=== PATIENT | female | born 2000 | race Caucasian/White ===

== ENCOUNTER 2021-03-23 13:33 | Emergency (ER) | payer OTHER ==
[~2021-03-23] VITALS: Ht 162.5 cm; Wt 110.4 kg
--- NOTE | 2021-03-23 14:01 | ED Abdominal Pain ---
General Chief Complaint: Abdominal/GI Problems Stated Complaint: PAIN IN ABD/BACK WHILE EATING Nursing Triage Note: PT ARRIVES TO ER WITH C/O ABD PAIN THAT RADIATES TO UPPER BACK WHEN EATING. PT STATES SHE HAS ACID REFLUX AND TOOK A TUMS TODAY WITOUT RELIEF. PT ALSO HAD FIRST DOSE OF MODERNA VACCINE LAST WEDNESDAY Source of Information: Patient History of Present Illness Date Seen by Provider: Mar 23, 2021 Time Seen by Provider: 13:52 Initial Comments PT ARRIVES VIA POV FROM HOME C/O EPIGASTRIC PAIN THAT RADIATES THRU TO HER BACK SINCE YESTERDAY PAIN IS ONLY WHEN SHE EATS OR DRINKS ANYTHING, AND IS NOT PRESENT NOW. ATE BREAKFAST BURRITOS 1 HOUR AGO STATES "IT FELT LIKE HEARTBURN" SO SHE TOOK A TUMS JUST PRIOR TO ARRIVAL AND IT DID NOT HELP, SO CAME TO ER NO NAUSEA/VOMITING/DIARRHEA/CONSTIPATION. HAD NORMAL BM AROUND 2230 LAST PM NO FEVER NO COUGH/URI SYMPTOMS OR RECENT ILLNESS NO URINARY SYMPTOMS NO HISTORY OF SIMILAR NO PRIOR ABDOMINAL SURGERIES OR GI PROBLEMS RARE ALCOHOL USE, AND NONE X 1 MONTH NO SMOKING NO DRUG USE DOES NOT TAKE ANY MEDICATIONS ON DAILY BASIS OR HAVE ANY CHRONIC MEDICAL PROBLEMS LMP 03/16/21. NORMAL. NO CONTROL. FIRST MODERNA COVID-19 VACCINE ON 03/20/21 PCP: JB Allergies and Home Medications Allergies Coded Allergies: No Known Drug Allergies (Unverified , 03/23/21) Patient Home Medication List Home Medication List Reviewed: Yes Nitrofurantoin Monohyd/M-Cryst (Macrobid 100 mg Capsule) 100 Mg Capsule, 1 TAB PO BID Prescribed by: YIMI CHIU on 03/23/21 151 Pantoprazole Sodium (Protonix) 40 Mg Tablet.dr, 40 MG PO DAILY Prescribed by: YIMI CHIU on 03/23/21 1516 Review of Systems Review of Systems Constitutional: no symptoms reported Respiratory: No Symptoms Reported Cardiovascular: No Symptoms Reported Gastrointestinal: See HPI, Abdominal Pain; Denies Constipated, Denies Diarrhea, Denies Nausea, Denies Poor Appetite, Denies Poor Fluid Intake, Denies Vomiting Genitourinary: No Symptoms Reported Musculoskeletal: see HPI, back pain Skin: no symptoms reported Psychiatric/Neurological: No Symptoms Reported Endocrine: No Symptoms Reported Hematologic/Lymphatic: No Symptoms Reported Past Vtcohik-Xjcmuw-Plfigv Hx Patient Social History Tobacco Use?: No Substance use?: No Alcohol Use?: Yes Alcohol Frequency: Several times a month Past Medical History Surgeries: No Respiratory: No Cardiac: No Neurological: No : No Last Menstrual Period: Mar 16, 2021 Reproductive Disorders: No Genitourinary: No Gastrointestinal: No Musculoskeletal: No Endocrine: Yes (OBESE) HEENT: No Cancer: No Psychosocial: No Integumentary: No Blood Disorders: No Physical Exam Vital Signs Vital Signs - First Documented 03/23/21 13:48 Temp 37.0 Pulse 97 Resp 18 B/P (MAP) 135/73 (93) Pulse Ox 99 O2 Delivery Room Air Capillary Refill : Less Than 3 Seconds Height/Weight/BMI Height: '" Weight: lbs. oz. 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, no motor/sensory deficits, alert, normal mood/affect, oriented x 3 Skin: normal color, warm/dry; No rash Progress/Results/Core Measures Results/Orders Lab Results Laboratory Tests Test 03/23/21 13:58 03/23/21 14:15 Range/Units Urine Color YELLOW Urine Clarity SL CLOUDY Urine pH 6.0 5-9 Urine Specific Crawford 1.025 H 1.016-1.022 Urine Protein NEGATIVE NEGATIVE Urine Glucose (UA) NEGATIVE NEGATIVE Urine Ketones NEGATIVE NEGATIVE Urine Nitrite NEGATIVE NEGATIVE Urine Bilirubin NEGATIVE NEGATIVE Urine Urobilinogen 0.2 < = 1.0 MG/DL Urine Leukocyte Esterase 2+ H NEGATIVE Urine RBC (Auto) NEGATIVE NEGATIVE Urine RBC NONE /HPF Urine WBC 25-50 H /HPF Urine Squamous Epithelial Cells 10-25 H /HPF Urine Crystals NONE /LPF Urine Bacteria MODERATE H /HPF Urine Casts NONE /LPF Urine Mucus SMALL H /LPF Urine Culture Indicated YES Urine Opiates Screen NEGATIVE NEGATIVE Urine Oxycodone Screen NEGATIVE NEGATIVE Urine Methadone Screen NEGATIVE NEGATIVE Urine Propoxyphene Screen NEGATIVE NEGATIVE Urine Barbiturates Screen NEGATIVE NEGATIVE Ur Tricyclic Antidepressants Screen NEGATIVE NEGATIVE Urine Phencyclidine Screen NEGATIVE NEGATIVE Urine Amphetamines Screen NEGATIVE NEGATIVE Urine Methamphetamines Screen NEGATIVE NEGATIVE Urine Benzodiazepines Screen NEGATIVE NEGATIVE Urine Cocaine Screen NEGATIVE NEGATIVE Urine Cannabinoids Screen NEGATIVE NEGATIVE White Blood Count 7.1 4.3-11.0 10^3/uL Red Blood Count 4.56 3.80-5.11 10^6/uL Hemoglobin 14.4 11.5-16.0 g/dL Hematocrit 45 35-52 % Mean Corpuscular Volume 98 80-99 fL Mean Corpuscular Hemoglobin 32 25-34 pg Mean Corpuscular Hemoglobin Concent 32 32-36 g/dL Red Cell Distribution Width 12.3 10.0-14.5 % Platelet Count 279 130-400 10^3/uL Mean Platelet Volume 9.9 9.0-12.2 fL Immature Granulocyte % (Auto) 0 % Neutrophils (%) (Auto) 65 42-75 % Lymphocytes (%) (Auto) 27 12-44 % Monocytes (%) (Auto) 5 0-12 % Eosinophils (%) (Auto) 2 0-10 % Basophils (%) (Auto) 1 0-10 % Neutrophils # (Auto) 4.6 1.8-7.8 10^3/uL Lymphocytes # (Auto) 1.9 1.0-4.0 10^3/uL Monocytes # (Auto) 0.4 0.0-1.0 10^3/uL Eosinophils # (Auto) 0.1 0.0-0.3 10^3/uL Basophils # (Auto) 0.1 0.0-0.1 10^3/uL Immature Granulocyte # (Auto) 0.0 0.0-0.1 10^3/uL Sodium Level 138 135-145 MMOL/L Potassium Level 3.9 3.6-5.0 MMOL/L Chloride Level 106 98-107 MMOL/L Carbon Dioxide Level 21 21-32 MMOL/L Anion Gap 11 5-14 MMOL/L Blood Urea Nitrogen 8 7-18 MG/DL Creatinine 0.68 0.60-1.30 MG/DL Estimat Glomerular Filtration Rate 110 BUN/Creatinine Ratio 12 Glucose Level 109 H 70-105 MG/DL Calcium Level 10.2 H 8.5-10.1 MG/DL Corrected Calcium 10.3 H 8.5-10.1 MG/DL Total Bilirubin 0.4 0.1-1.0 MG/DL Aspartate Amino Transf (AST/SGOT) 14 5-34 U/L Alanine Aminotransferase (ALT/SGPT) 20 0-55 U/L Alkaline Phosphatase 106 40-136 U/L Total Protein 7.6 6.4-8.2 GM/DL Albumin 3.9 3.2-4.5 GM/DL Amylase Level 27 25-125 U/L Lipase 6 L 8-78 U/L My Orders Orders - YIMI CHIU DO Ed Iv/Invasive Line Start (03/23/21 13:51) Urine Bedside (03/23/21 13:51) Amylase (03/23/21 13:51) Cbc With Automated Diff (03/23/21 13:51) Comprehensive Metabolic Panel (03/23/21 13:51) Drug Screen Stat (Urine) (03/23/21 13:51) Lipase (03/23/21 13:51) Ua Culture If Indicated (03/23/21 13:51) Urine Culture (03/23/21 13:58) Ct Abdomen/Pelvis W (03/23/21 14:28) Iohexol Injection (Omnipaque 350 Mg/Ml 1 (03/23/21 14:30) Received Contrast (Hold Metformin- Contr (03/23/21 14:30) Ns (Ivpb) (Sodium Chloride 0.9% Ivpb Bag (03/23/21 14:30) Medications Given in ED Current Medications Medications Dose Ordered Sig/Kayla Route Start Time Stop Time Status Last Admin Dose Admin Iohexol 100 ml ONCE ONCE IV 03/23/21 14:30 03/23/21 14:54 DC 03/23/21 14:56 100 ML Sodium Chloride 100 ml ONCE ONCE IV 03/23/21 14:30 03/23/21 14:54 DC 03/23/21 14:56 100 ML Vital Signs/I&O 03/23/21 03/23/21 13:48 15:34 Temp 37.0 37.0 Pulse 97 97 Resp 18 18 B/P (MAP) 135/73 (93) 135/73 Pulse Ox 99 99 O2 Delivery Room Air Room Air Blood Pressure Mean: 93 Progress Progress Note : Progress Note NO SYMPTOMS OF ANY KIND DURING ER STAY Diagnostic Imaging Comments CT ABDOMEN/PELVIS--PER RADIOLOGIST REPORT AT 1511 FINDINGS: The visualized lung bases are clear. The liver, spleen, adrenal glands, pancreas and gallbladder are unremarkable. The bilateral kidneys and ureters are unremarkable. No aneurysmal dilatation of the abdominal aorta. The appendix is unremarkable. The urinary bladder is decompressed, therefore not well evaluated. The uterus and adnexal structures are unremarkable for age. No bowel obstruction or pneumatosis. No significant adenopathy, free air or free fluid within the abdomen or pelvis. Mild apex left curvature of the spine without acute osseous abnormality. IMPRESSION: No acute abnormality. Reviewed: Reviewed by Me Departure Communication (Admissions) 1444--SPOKE BRIEFLY WITH DR. CM --WILL CALL HIM BACK WITH CT RESULTS 1511--SPOKE WITH DR. CM, WILL ORDER OUTPATIENT ULTRASOUND, START ON PPI AND HE WILL SEE HER IN THE OFFICE NEXT WEEK. Impression Primary Impression: Epigastric abdominal pain Additional Impression: UTI (urinary tract infection) Disposition: HOME, SELF-CARE Condition: Improved Departure-Patient Inst. Decision time for Depature: 15:13 Referrals: PRIYANKA CM DO [facility] [place] Patient Instructions: Abdominal Pain, Adult ED, Urinary Tract Infection, Adult ED Add. Discharge Instructions: LOTS OF CLEAR LIQUIDS--WATER, BROTH, JELLO, GATORADE BRATS DIET--BANANAS, RICE, APPLESAUCE, TOAST, SALTINES CALLED SCHEDULING FIRST THING IN THE MORNING TO SCHEDULE OUTPATIENT ULTRASOUND FOLLOW UP WITH DR. CM THIS WEEK FOR FURTHER CARE, CALL IN THE MORNING TO SCHEDULE APPOINTMENT All discharge instructions reviewed with patient and/or family. Voiced understanding. Scripts Nitrofurantoin Monohyd/M-Cryst (Macrobid 100 mg Capsule) 100 Mg Capsule 1 TAB PO BID, #20 CAP Prov: YIMI CHIU DO 03/23/21 Pantoprazole Sodium (Protonix) 40 Mg Tablet. 40 MG PO DAILY, #15 TAB Prov: YIMI CHIU DO 03/23/21 YIMI CHIU DO Mar 23, 2021 14:01
[2021-03-23 14:06] LABS: BILIRUBIN,URINE NEGATIVE (NEGATIVE); CLARITY,URINE SL CLOUDY; COLOR,URINE YELLOW; GLUCOSE, URINE (UA) NEGATIVE (NEGATIVE); KETONES,URINE NEGATIVE (NEGATIVE); LEUKOCYTE ESTERASE ,URINE 2+ (NEGATIVE); NITRITE,URINE NEGATIVE (NEGATIVE); PROTEIN,URINE NEGATIVE (NEGATIVE)
[2021-03-23 14:13] LABS: BACTERIA,URINE MODERATE /HPF; WBC,URINE 25-50 /HPF
[2021-03-23 14:21] LABS: AMPHETAMINE SCREEN, URINE NEGATIVE (NEGATIVE); BARBITURATE SCREEN URINE NEGATIVE (NEGATIVE); BENZODIAZEPINES SCREEN URINE NEGATIVE (NEGATIVE); CANNABINOID SCREEN, URINE NEGATIVE (NEGATIVE); COCAINE SCREEN URINE NEGATIVE (NEGATIVE); METHADONE STAT NEGATIVE (NEGATIVE); METHAMPHETAMINE SCREEN URINE S NEGATIVE (NEGATIVE); OPIATE SCREEN URINE NEGATIVE (NEGATIVE); OXYCODONE STAT NEGATIVE (NEGATIVE); PROPOXYPHENE STAT NEGATIVE (NEGATIVE); TRICYCLIC ANTIDEPRESSANTS SCRE NEGATIVE (NEGATIVE)
[2021-03-23 14:21] LABS: BASOPHILS # (AUTO) 0.1 10^3/uL (0.0-0.1); BASOPHILS % (AUTO) 1 % (0-10); EOSINOPHILS # (AUTO) 0.1 10^3/uL (0.0-0.3); EOSINOPHILS % (AUTO) 2 % (0-10); HEMATOCRIT 45 % (35-52); HEMOGLOBIN 14.4 g/dL (11.5-16.0); LYMPHOCYTES # (AUTO) 1.9 10^3/uL (1.0-4.0); LYMPHOCYTES % (AUTO) 27 % (12-44); MEAN CORPUSCULAR HEMOGLOBIN 32 pg (25-34); MEAN CORPUSCULAR HGB CONC 32 g/dL (32-36); MEAN CORPUSCULAR VOLUME 98 fL (80-99); MEAN PLATELET VOLUME 9.9 fL (9.0-12.2); MONOCYTES # (AUTO) 0.4 10^3/uL (0.0-1.0); MONOCYTES % (AUTO) 5 % (0-12); NEUTROPHILS # (AUTO) 4.6 10^3/uL (1.8-7.8); NEUTROPHILS % (AUTO) 65 % (42-75); PLATELET COUNT 279 10^3/uL (130-400); WHITE BLOOD COUNT 7.1 10^3/uL (4.3-11.0)
[2021-03-23] MEDS ORDERED: IOHEXOL 350 MG/ML 100 ML (OMNIPAQUE 350) VIAL IV ONE (14:30)
[2021-03-23] MEDS ORDERED: HOLD METFORMIN - RECEIVED CONTRAST 20 ML VIAL IV SCH (14:30)
[2021-03-23] MEDS ORDERED: NS 100 ML (IVPB) BAG IV ONE (14:30)
[2021-03-23 14:32] LABS: ALBUMIN 3.9 GM/DL (3.2-4.5); POTASSIUM 3.9 MMOL/L (3.6-5.0)
[2021-03-23 14:33] LABS: CALCIUM 10.2 MG/DL (8.5-10.1)
[2021-03-23 14:35] LABS: TOTAL PROTEIN 7.6 GM/DL (6.4-8.2)
[2021-03-23 14:36] LABS: BILIRUBIN,TOTAL 0.4 MG/DL (0.1-1.0)
[2021-03-23 14:38] LABS: CREATININE SERUM 0.68 MG/DL (0.60-1.30)
--- NOTE | 2021-03-23 15:07 | Diagnostic Imaging Report ---
PROCEDURE: CT abdomen and pelvis with contrast. TECHNIQUE: Multiple contiguous axial images were obtained through the abdomen and pelvis after administration of intravenous contrast. Auto Exposure Controls were utilized during the CT exam to meet ALARA standards for radiation dose reduction. All CT scans use one or more of the following dose optimizing techniques: automated exposure control, MA and/or KvP adjustment based on patient size and exam type or iterative reconstruction. INDICATION: Epigastric pain. COMPARISON: None available. FINDINGS: The visualized lung bases are clear. The liver, spleen, adrenal glands, pancreas and gallbladder are unremarkable. The bilateral kidneys and ureters are unremarkable. No aneurysmal dilatation of the abdominal aorta. The appendix is unremarkable. The urinary bladder is decompressed, therefore not well evaluated. The uterus and adnexal structures are unremarkable for age. No bowel obstruction or pneumatosis. No significant adenopathy, free air or free fluid within the abdomen or pelvis. Mild apex left curvature of the spine without acute osseous abnormality. IMPRESSION: No acute abnormality. Dictated by: Dictated on workstation # [id number]
[2021-03-23] MEDS ORDERED: PANT40TA2 PO (15:16)
[2021-03-23] MEDS ORDERED: NITR-65 PO (15:16)
[2021-03-23 15:34] VITALS: BP 135/73
== END 2021-03-23 15:34 | disposition home or self-care (01) ==
LOC: ER 13:37
DX: R10.13 Epigastric pain (principal); N39.0 Urinary tract infection, site not specified; E66.9 Obesity, unspecified; Z68.41 Body mass index [BMI] 40.0-44.9, adult
CPT/HCPCS: 36415; 74177; 80053; 80306; 81000; 82150; 83690; 84703; 85025; 87088

== ENCOUNTER → 2021-03-25 | Outpatient (CLI) | payer OTHER ==
[~2021-03-25] MED LIST: NITR-65 PO; PANT40TA2 PO
--- NOTE | 2021-03-25 09:03 | Diagnostic Imaging Report ---
INDICATION: Epigastric pain. PROCEDURE: Ultrasound abdomen complete. TECHNIQUE: Multiple real-time grayscale images were obtained of the abdomen in various projections. The liver is normal in size at 16 cm. The portal vein is patent and shows normal direction of flow. No discrete liver mass is detected. Gallbladder is without stones or sludge. No wall thickening or biliary duct dilatation is seen. Pancreas unremarkable. Spleen is normal in size at 10.7 cm. Aorta is nonaneurysmal. IVC is patent. Both right and left kidneys are without calculi or hydronephrosis. There is no ascites. IMPRESSION: Unremarkable abdominal ultrasound. Dictated by: Dictated on workstation # [id number]
== END ==
LOC: RAD 07:00
PROVIDERS: ATTEND Emergency Medicine
DX: R10.13 Epigastric pain (principal)
CPT/HCPCS: 76700